=== PATIENT | female | born 1995 | race Hispanic/Latino ===

== ENCOUNTER 2017-06-23 22:19 | Emergency (ER) | payer BC ==
[2017-06-23] MEDS ORDERED: NA CHLORIDE 0.9% 1,000 ML ONE (23:01)
[2017-06-23 23:27] LABS: Protime INR 1.2
[2017-06-23 23:29] LABS: Absolute Lymphocytes (CBC) 2.4 K/uL (0.7-4.9); Absolute Monocytes 0.6 K/uL (0.1-1.3); Absolute Neutrophil 6.2 K/uL (1.8-8.0); Basophils % 0.5 % (0-1.3); Eosinophils % 0.3 % (0-4.4); Lymphocytes % 25.5 % (15.3-44.8); MCV 90.7 fL (80-100); MPV 10.1 fL (7.6-11.3); Monocytes % 6.2 % (3.3-12.3); RBC Red Blood Cell Count 3.97 M/uL (3.86-4.86)
[2017-06-23 23:42] LABS: Glucose Level 107 mg/dL (65-120)
[2017-06-23 23:48] LABS: ALT/SGPT 12 IU/L (10-60); AST/SGOT 21 IU/L (10-42); Albumin 4.9 g/dL (3.2-5.5); Alkaline Phosphatase 52 IU/L (42-121); BUN Blood Urea Nitrogen 9 mg/dL (6-20); Bilirubin Direct 0.1 mg/dL (0-0.2); Bilirubin Total 0.8 mg/dL (0.3-1.2); Protein, Total 7.7 g/dL (6.0-8.3)
[2017-06-23 23:50] LABS: Alcohol Serum/Plasma < 10 mg/dl; Bicarbonate 21 mEq/L (21-31); Salicylates Level < 4.0 mg/dl (<30); Sodium Level 138 mEq/L (135-145)
[2017-06-24] MEDS ORDERED: NA CHLORIDE 0.9% 1,000 ML ONE (00:05)
[2017-06-24] MEDS ORDERED: KCL 20 MEQ/100 mL IVPB 20 MEQ/100 ML BAG IV ONE ×2 (00:05→03:03)
[2017-06-24 00:11] LABS: Specific Gravity 1.015 (1.005-1.030)
[2017-06-24 00:20] LABS: Barbiturates NEGATIVE; Benzodiazepines POSITIVE; Cocaine NEGATIVE; Opiates POSITIVE; Phencyclidine NEGATIVE; THC Cannibis POSITIVE
[2017-06-24 00:27] LABS: METHAMPHETAM POSITIVE
[2017-06-24] MEDS ORDERED: NA CHLORIDE 0.9% 500 ML ONE (03:03)
[2017-06-24 03:30] LABS: Urine Blood TRACE (NEG); Urine Glucose NEGATIVE (NEG); Urine Protein 1+ (NEG); Urine Specific Gravity >1.030 (1.005-1.030); Urine pH 6.5 (5.0-7.0)
[2017-06-24 05:33] LABS: BUN Blood Urea Nitrogen 8 mg/dL (6-20); Bicarbonate 22 mEq/L (21-31); Glucose Level 95 mg/dL (65-120); Potassium 4.1 mEq/L (3.6-5.0); Sodium Level 138 mEq/L (135-145)
--- NOTE | 2017-06-24 06:50 | ER ---
Nurse's Notes [facility] Emergency Department Name: Nay Ayon Age: 21 yrs Sex: Female : 1995 Arrival Date: 06/23/2017 Time: 22:23 Bed 17 Private MD: Diagnosis: Depression;Acute stress reaction Presentation: 06/23 22:30 Presenting complaint: EMS states: Pt having thoughts of suicide, pt reported taking an ea unknown amount of Nexium, Cipro and Ranitidine at around 1300, pt reported she induced vomiting about 15 to 20 minutes after. Pt called suicide hot line and contacted EMS. EMS reports that they contacted poison control and were told to provide comfort measures for abdominal discomfort as needed. Transition of care: patient was not received from another setting of care. Onset of symptoms was June 23, 2017. Initial Sepsis Screen: Does the patient meet any 2 criteria? No. Patient's initial sepsis screen is negative. Does the patient have a suspected source of infection? No. Patient's initial sepsis screen is negative. 22:30 Method Of Arrival: EMS: [facility] ea 22:30 Care prior to arrival: None. ea 22:30 Acuity: ALIA 2 ea Triage Assessment: 22:30 General: Appears in no apparent distress. Behavior is calm, cooperative, Pt denies SI . ea Pain: Complains of pain in abdomen Pain does not radiate. Pain currently is 6 out of 10 on a pain scale. Quality of pain is described as aching, crampy, Pain began 3 hours ago. Is intermittent. EENT: No deficits noted. Neuro: Level of Consciousness is awake, alert, obeys commands, Oriented to person, place, time, situation. Cardiovascular: Heart tones present Patient's skin is warm and dry. Respiratory: Airway is patent Respiratory effort is even, unlabored, Respiratory pattern is regular, symmetrical, Breath sounds are clear bilaterally. GI: Abdomen is non-distended, Bowel sounds present X 4 quads. Abd is soft and non tender X 4 quads. : No signs and/or symptoms were reported regarding the genitourinary system. Derm: Skin is pink, warm \T\ dry. TUR[employer] F[employer]ER: 22:30 LMP 05/26/2017 ea Historical: - Allergies: 22:48 No Known Allergies; ea - Home Meds: 22:48 Bactrim DS 800-160 mg Oral tab 1 tab every 12 hours [Active]; ranitidine HCl 75 mg Oral ea tab 1 tab 2 times per day [Active]; Cipro 500 mg Oral tab [Active]; esomeprazole magnesium 40 mg oral cpDR 1 cap 2 times per day [Active]; - PMHx: 22:48 Heart Murmur; Anxiety; Depression; ea - Immunization history:: Adult Immunizations up to date. - Social history:: Smoking status: Patient/guardian denies using tobacco. Screenin:53 Abuse screen: Denies threats or abuse. Nutritional screening: No deficits noted. ea Tuberculosis screening: No symptoms or risk factors identified. Fall Risk None identified. Assessment: 23:48 Reassessment: Patient and/or family updated on plan of care and expected duration. Pain ea level reassessed. Patient is alert, oriented x 3, equal unlabored respirations, skin warm/dry/pink. Pt reports abdominal pain has subsided. 06/24 00:38 Reassessment: Patient and/or family updated on plan of care and expected duration. Pain ea level reassessed. Patient is alert, oriented x 3, equal unlabored respirations, skin warm/dry/pink. Patient denies pain at this time. 01:55 Reassessment: Patient and/or family updated on plan of care and expected duration. Pain ea level reassessed. Pt resting with eyes closed, respirations even and unlabored, chest expansions even and symmetrical. No s/s of pain or discomfort noted at this time. Mother at bedside. 02:25 Reassessment: Patient and/or family updated on plan of care and expected duration. Pain ea level reassessed. Pt resting with eyes closed, respirations even and unlabored, chest expansions even and symmetrical. No s/s of pain or discomfort noted at this time. Mother at bedside. 03:19 Reassessment: Patient and/or family updated on plan of care and expected duration. Pain ea level reassessed. Patient is alert, oriented x 3, equal unlabored respirations, skin warm/dry/pink. Pt denies suicidal ideations. Mother at bedside. 04:51 Reassessment: Patient and/or family updated on plan of care and expected duration. Pain ea level reassessed. Patient is alert, oriented x 3, equal unlabored respirations, skin warm/dry/pink. Patient denies pain at this time. Patient states feeling better. 05:56 Reassessment: Patient and/or family updated on plan of care and expected duration. Pain ea level reassessed. Patient is alert, oriented x 3, equal unlabored respirations, skin warm/dry/pink. Pt denies suicidal ideations. Mother remains at bedside. Patient denies pain at this time. Patient states feeling better. 06:15 Reassessment: Patient and/or family updated on plan of care and expected duration. Pain ea level reassessed. Patient is alert, oriented x 3, equal unlabored respirations, skin warm/dry/pink. [place] ETA approx. 20 to 30 min. Mother remains at bedside. Patient denies pain at this time. Patient states feeling better. 06:50 Reassessment: Patient and/or family updated on plan of care and expected duration. Pain ea level reassessed. Patient is alert, oriented x 3, equal unlabored respirations, skin warm/dry/pink. Discharge instructions given to patient and family, verbalized the understanding of instructions. Patient denies pain at this time. Patient states feeling better. Vital Signs: 06/23 22:30 BP 138 / 69; Pulse 119; Resp 18; Temp 98.8; Pulse Ox 100% on R/A; Weight 63.5 kg; ea Height 5 ft. 5 in. (165.10 cm); Pain 6/10; 06/24 00:45 BP 110 / 66; Pulse 75; Resp 18; Pulse Ox 98% on R/A; ea 02:26 BP 108 / 63; Pulse 71; Resp 18; Pulse Ox 98% on R/A; ea 03:22 BP 100 / 64; Pulse 70; Resp 18 S; Pulse Ox 100% on R/A; ea 04:51 BP 103 / 63; Pulse 68; Resp 18; Pulse Ox 99% on R/A; Pain 0/10; ea 05:27 BP 100 / 60; Pulse 70; Resp 18 S; Pulse Ox 99% on R/A; ea 06:27 BP 100 / 64; Pulse 68; Resp 18 S; Temp 97.8(TE); Pulse Ox 99% on R/A; ea 06/23 22:30 Body Mass Index 23.30 (63.50 kg, 165.10 cm) ea ED Course: 06/23 22:23 Patient arrived in ED. rg2 22:29 Marika Fuller FNP-C is [facility]. snw 22:29 Diogo Andrews MD is Attending Physician. snw 22:30 Safety Checks: Personal items have been removed The door is open or patient has been ea placed in a hallway bed/chair. A family member and/or friend is present and encouraged to stay. 22:32 Tereza Wan, CARLOS is Primary Nurse. ea 22:45 Triage completed. ea 22:54 Patient has correct armband on for positive identification. Bed in low position. Call ea light in reach. Side rails up X2. 23:00 Safety Checks: Personal items have been removed The door is open or patient has been ea placed in a hallway bed/chair. A family member and/or friend is present and encouraged to stay. 23:00 Inserted saline lock: 20 gauge in right antecubital area, using aseptic technique. ea Blood collected. 23:15 Safety Checks: Personal items have been removed The door is open or patient has been ea placed in a hallway bed/chair. A family member and/or friend is present and encouraged to stay. 23:25 Radiology exam delayed due to test not completed at this time. kw 23:30 Safety Checks: Personal items have been removed The door is open or patient has been ea placed in a hallway bed/chair. A family member and/or friend is present and encouraged to stay. 23:30 Arm band placed on right wrist. ea 23:45 Safety Checks: Personal items have been removed The door is open or patient has been ea placed in a hallway bed/chair. A family member and/or friend is present and encouraged to stay. 06/24 00:00 Safety Checks: Personal items have been removed The door is open or patient has been ea placed in a hallway bed/chair. A family member and/or friend is present and encouraged to stay. 00:15 Safety Checks: Personal items have been removed The door is open or patient has been ea placed in a hallway bed/chair. A family member and/or friend is present and encouraged to stay. 00:26 Patient moved to radiology via wheelchair. kw 00:26 X-ray completed. Patient tolerated procedure well. kw 00:26 Patient moved back from radiology. kw 00:27 XRAY Abdomen Acute Series In Process Unspecified. EDMS 00:30 Safety Checks: Personal items have been removed The door is open or patient has been ea placed in a hallway bed/chair. A family member and/or friend is present and encouraged to stay. 01:00 Safety Checks: Personal items have been removed The door is open or patient has been ea placed in a hallway bed/chair. A family member and/or friend is present and encouraged to stay. 01:15 Safety Checks: Personal items have been removed The door is open or patient has been ea placed in a hallway bed/chair. A family member and/or friend is present and encouraged to stay. 01:30 Safety Checks: Personal items have been removed The door is open or patient has been ea placed in a hallway bed/chair. A family member and/or friend is present and encouraged to stay. 01:45 Safety Checks: Personal items have been removed The door is open or patient has been ea placed in a hallway bed/chair. A family member and/or friend is present and encouraged to stay. 02:00 Safety Checks: Personal items have been removed The door is open or patient has been ea placed in a hallway bed/chair. A family member and/or friend is present and encouraged to stay. 02:15 Safety Checks: Personal items have been removed The door is open or patient has been ea placed in a hallway bed/chair. A family member and/or friend is present and encouraged to stay. 02:30 Safety Checks: Personal items have been removed The door is open or patient has been ea placed in a hallway bed/chair. A family member and/or friend is present and encouraged to stay. 03:00 Safety Checks: Personal items have been removed The door is open or patient has been ea placed in a hallway bed/chair. A family member and/or friend is present and encouraged to stay. 03:15 Safety Checks: Personal items have been removed The door is open or patient has been ea placed in a hallway bed/chair. A family member and/or friend is present and encouraged to stay. 03:30 Safety Checks: Personal items have been removed The door is open or patient has been ea placed in a hallway bed/chair. A family member and/or friend is present and encouraged to stay. 03:45 Safety Checks: Personal items have been removed The door is open or patient has been ea placed in a hallway bed/chair. A family member and/or friend is present and encouraged to stay. 04:00 Safety Checks: Personal items have been removed The door is open or patient has been ea placed in a hallway bed/chair. A family member and/or friend is present and encouraged to stay. 04:15 Safety Checks: Personal items have been removed The door is open or patient has been ea placed in a hallway bed/chair. A family member and/or friend is present and encouraged to stay. 04:30 Safety Checks: Personal items have been removed The door is open or patient has been ea placed in a hallway bed/chair. A family member and/or friend is present and encouraged to stay. 04:45 Safety Checks: Personal items have been removed The door is open or patient has been ea placed in a hallway bed/chair. A family member and/or friend is present and encouraged to stay. 05:00 Safety Checks: Personal items have been removed The door is open or patient has been ea placed in a hallway bed/chair. A family member and/or friend is present and encouraged to stay. 05:15 Safety Checks: Personal items have been removed The door is open or patient has been ea placed in a hallway bed/chair. A family member and/or friend is present and encouraged to stay. 05:28 Safety Checks: Personal items have been removed The door is open or patient has been ea placed in a hallway bed/chair. A family member and/or friend is present and encouraged to stay. 05:30 Safety Checks: Personal items have been removed The door is open or patient has been ea placed in a hallway bed/chair. A family member and/or friend is present and encouraged to stay. 05:45 Safety Checks: Personal items have been removed The door is open or patient has been ea placed in a hallway bed/chair. A family member and/or friend is present and encouraged to stay. 06:00 Safety Checks: Personal items have been removed The door is open or patient has been ea placed in a hallway bed/chair. A family member and/or friend is present and encouraged to stay. 06:15 Safety Checks: Personal items have been removed The door is open or patient has been ea placed in a hallway bed/chair. A family member and/or friend is present and encouraged to stay. 06:30 Safety Checks: Personal items have been removed The door is open or patient has been ea placed in a hallway bed/chair. A family member and/or friend is present and encouraged to stay. 06:50 No provider procedures requiring assistance completed. IV discontinued, intact, ea bleeding controlled, No redness/swelling at site. Pressure dressing applied. Administered Medications: 06/23 23:05 Drug: NS 0.9% 1000 ml Route: IV; Rate: 1 bolus; Site: right antecubital; ea 06/24 00:30 Follow up: Response: No adverse reaction; IV Status: Completed infusion ea 00:13 Drug: Potassium Chloride 20 mEq Route: IV; Rate: calculated rate; Site: right ea antecubital; 01:50 Follow up: IV Status: Completed infusion ak1 00:14 Drug: NS 0.9% 1000 ml Route: IV; Rate: 125 ml/hr; Site: right antecubital; ea 01:00 Follow up: Response: No adverse reaction; IV Status: Completed infusion ea 03:10 Drug: Potassium Chloride 20 mEq Route: IV; Rate: calculated rate; Site: right ea antecubital; 04:49 Follow up: Response: No adverse reaction; IV Status: Completed infusion ea Outcome: 06:49 Discharge ordered by . rn 06:50 Discharged to home ambulatory, with family. ea 06:50 Condition: improved 06:50 Discharge instructions given to patient, family, Instructed on discharge instructions, follow up and referral plans. Demonstrated understanding of instructions, follow-up care. 07:11 Patient left the ED. ea Signatures: Dispatcher [employer] EDMS Marge Guzman rg2 Marika Fuller, MANAGEMENT SPECIALIST-C MANAGEMENT SPECIALIST-Csnw Diogo Andrews MD MD rn Whitley, Kimberlee kw Krenek, Amber RN RN Tereza Reid RN RN khanh Corrections: (The following items were deleted from the chart) 06/23 22:53 21:55 General: Appears in no apparent distress. Behavior is calm, cooperative, ea ea :57 06/22 21:55 Presenting complaint: EMS states: Pt having thoughts of suicide, pt ea reported taking an unknown amount of Nexium, Cipro and Ranitidine at around 1300, pt reported she induced vomiting about 15 to 20 minutes after. Pt called suicide hot line and contacted EMS. EMS reports that they contacted poison control and were told to provide comfort measures for abdominal discomfort as needed. ea 06/23 21:55 Transition of care: patient was not received from another setting of care. [facility] 06/23 21:06/22 21:55 Onset of symptoms was June 23, 2017 [facility] 06/23 21:06/22 21:55 Initial Sepsis Screen: Does the patient meet any 2 criteria? No. Patient's ea initial sepsis screen is negative. Does the patient have a suspected source of infection? No. Patient's initial sepsis screen is negative. 06/23 21:06/22 21:55 Care prior to arrival: None. [facility] 06/23 21:06/22 21:55 Method Of Arrival: EMS: [facility] 06/23 21:06/22 21:55 Acuity: ALIA 2 [facility] 06/23 21: 21:55 BP 138 / 69; Pulse 119bpm; Resp 18bpm; Pulse Ox 100% RA; Temp 98.8F; 63.5 kg; ea Height 5 ft. 5 in.; BMI: 23.3; Pain 6/10; 21:55 LMP 05/26/2017 [facility] : 21:55 Pain: Complains of pain in abdomen Pain does not radiate. Pain currently is 6 out ea of 10 on a pain scale. Quality of pain is described as aching, crampy, Pain began 3 hours ago. Is intermittent, ea 21:55 EENT: No deficits noted. [facility] : 21:55 Neuro: Level of Consciousness is awake, alert, obeys commands, Oriented to ea person, place, time, situation, 21:55 Cardiovascular: Heart tones present Patient's skin is warm and dry. ea : 21:55 Respiratory: Airway is patent Respiratory effort is even, unlabored, Respiratory ea pattern is regular, symmetrical, Breath sounds are clear bilaterally. ea 21:55 GI: Abdomen is non-distended, Bowel sounds present X 4 quads. Abd is soft and non ea tender X 4 quads. ea 21:55 : No signs and/or symptoms were reported regarding the genitourinary system. ea :58 21:55 Derm: Skin is pink, warm \T\ dry. ea :58 21:55 General: Appears in no apparent distress. Behavior is calm, cooperative, Pt ea denies SI . ea 06/24 02:26 02:25 Reassessment: Patient and/or family updated on plan of care and expected ea duration. Pain level reassessed. Patient is alert, oriented x 3, equal unlabored respirations, skin warm/dry/pink. ea : 03:20 BP 130 / 58; Pulse 68bpm; Resp 18bpm; Spontaneous; Pulse Ox 98% RA; ea ea 05:57 03:19 Reassessment: Patient and/or family updated on plan of care and expected ea duration. Pain level reassessed. Patient is alert, oriented x 3, equal unlabored respirations, skin warm/dry/pink. ea 05:57 03:19 Reassessment: Patient and/or family updated on plan of care and expected ea duration. Pain level reassessed. Patient is alert, oriented x 3, equal unlabored respirations, skin warm/dry/pink. Pt denies suicidal ideations. ea 05:57 05:56 Reassessment: Patient and/or family updated on plan of care and expected ea duration. Pain level reassessed. Patient is alert, oriented x 3, equal unlabored respirations, skin warm/dry/pink. Patient denies pain at this time. Patient states feeling better. ea 05:57 05:56 Reassessment: Patient and/or family updated on plan of care and expected ea duration. Pain level reassessed. Patient is alert, oriented x 3, equal unlabored respirations, skin warm/dry/pink. Pt denies suicidal ideations. Patient denies pain at this time. Patient states feeling better. ea
--- NOTE | 2017-06-24 06:50 | EDPHYS ---
Physician Documentation [facility] Name: Nay Ayon Age: 21 yrs Sex: Female : 1995 Arrival Date: 06/23/2017 Time: 22:23 Bed 17 Private MD: ED Physician Diogo Andrews HPI: 06/24 01:11 This 21 yrs old Female presents to ER via EMS with complaints of overdose. snw 01:11 The patient presents to the emergency department with anxiety, depression, over money, snw over school, over work, a history of substance abuse, a history of a suicide gesture, where the patient took pills/medications, suicide ideation, and the patient has a plan, to overdose with medications, immediately remorseful per report, started making herself vomit soon after ingestion. Onset: The symptoms/episode began/occurred gradually. Past psychiatric history: Prior diagnosis: depression, the patient has not had a prior suicide gesture, the patient does not have a previous inpatient psychiatric history, the patient's last psychiatric treatment was none. Associated signs and symptoms: Pertinent positives; abdominal pain, anxiety, nausea, vomiting. Severity of symptoms: At their worst the symptoms were moderate severe in the emergency department the symptoms pt remorseful, denies SI. The patient has not experienced similar symptoms in the past. per GI is scheduled for endoscopy on Saturday or this week. 02:51 upon review of previous ED visits pt was transferred to [facility] psych with OD at age 16. snw Has been to this ED in the interim with OD and then declined transfer and Mom took pt with safety contract. At that time pt admitted to [facility]. Today on initial exam pt denied taking anything but GI medications given to her for abd pain but her UDS is + for a constellation of illegal drugs. Pt is hypokalemic and a second runner of KCL is being administered. [facility] has been called for pt eval.. POTLINE MONITOR: 06/23 22:30 LMP 05/26/2017 ea Historical: - Allergies: 22:48 No Known Allergies; ea - Home Meds: 22:48 Bactrim DS 800-160 mg Oral tab 1 tab every 12 hours [Active]; ranitidine HCl 75 mg Oral ea tab 1 tab 2 times per day [Active]; Cipro 500 mg Oral tab [Active]; esomeprazole magnesium 40 mg oral cpDR 1 cap 2 times per day [Active]; - PMHx: 22:48 Heart Murmur; Anxiety; Depression; ea - Immunization history:: Adult Immunizations up to date. - Social history:: Smoking status: Patient/guardian denies using tobacco. ROS: 06/24 01:19 Eyes: Negative for injury, pain, redness, and discharge, ENT: Negative for injury, snw pain, and discharge, Neck: Negative for injury, pain, and swelling, Cardiovascular: Negative for chest pain, palpitations, and edema, Respiratory: Negative for shortness of breath, cough, wheezing, and pleuritic chest pain, Back: Negative for injury and pain, : Negative for injury, bleeding, discharge, and swelling, MS/Extremity: Negative for injury and deformity, Skin: Negative for injury, rash, and discoloration, Neuro: Negative for headache, weakness, numbness, tingling, and seizure. Constitutional: Positive for malaise, poor PO intake. Abdomen/GI: Positive for abdominal pain, nausea, vomiting. Psych: Positive for anxiety, depression, suicide gesture. Exam: 01:19 Constitutional: This is a well developed, well nourished patient who is awake, alert, snw and in no acute distress. Head/Face: Normocephalic, atraumatic. Eyes: Pupils equal round and reactive to light, extra-ocular motions intact. Lids and lashes normal. Conjunctiva and sclera are non-icteric and not injected. Cornea within normal limits. Periorbital areas with no swelling, redness, or edema. ENT: Nares patent. No nasal discharge, no septal abnormalities noted. Tympanic membranes are normal and external auditory canals are clear. Oropharynx with no redness, swelling, or masses, exudates, or evidence of obstruction, uvula midline. Mucous membranes moist. Neck: Trachea midline, no thyromegaly or masses palpated, and no cervical lymphadenopathy. Supple, full range of motion without nuchal rigidity, or vertebral point tenderness. No Meningismus. Chest/axilla: Normal chest wall appearance and motion. Nontender with no deformity. No lesions are appreciated. 01:19 Respiratory: Lungs have equal breath sounds bilaterally, clear to auscultation and percussion. No rales, rhonchi or wheezes noted. No increased work of breathing, no retractions or nasal flaring. Back: No spinal tenderness. No costovertebral tenderness. Full range of motion. Skin: Warm, dry with normal turgor. Normal color with no rashes, no lesions, and no evidence of cellulitis. MS/ Extremity: Pulses equal, no cyanosis. Neurovascular intact. Full, normal range of motion. Neuro: Awake and alert, GCS 15, oriented to person, place, time, and situation. Cranial nerves II-XII grossly intact. Motor strength 5/5 in all extremities. Sensory grossly intact. Cerebellar exam normal. Normal gait. :19 Cardiovascular: Rate: tachycardic, Heart sounds: normal. 01:19 Abdomen/GI: Inspection: abdomen appears normal, Bowel sounds: active, Palpation: moderate abdominal tenderness, in all quadrants. :19 Psych: Behavior/mood is pleasant, cooperative, anxious, remorseful. Affect is tearful. Oriented to person, place, time, Patient has no thoughts/intents to harm self or others. Judgement / Insight is impaired. Vital Signs: 06/23 22:30 BP 138 / 69; Pulse 119; Resp 18; Temp 98.8; Pulse Ox 100% on R/A; Weight 63.5 kg; ea Height 5 ft. 5 in. (165.10 cm); Pain 6/10; 06/24 00:45 BP 110 / 66; Pulse 75; Resp 18; Pulse Ox 98% on R/A; ea 02:26 BP 108 / 63; Pulse 71; Resp 18; Pulse Ox 98% on R/A; ea 03:22 BP 100 / 64; Pulse 70; Resp 18 S; Pulse Ox 100% on R/A; ea 04:51 BP 103 / 63; Pulse 68; Resp 18; Pulse Ox 99% on R/A; Pain 0/10; ea 05:27 BP 100 / 60; Pulse 70; Resp 18 S; Pulse Ox 99% on R/A; ea 06:27 BP 100 / 64; Pulse 68; Resp 18 S; Temp 97.8(TE); Pulse Ox 99% on R/A; ea 06/23 22:30 Body Mass Index 23.30 (63.50 kg, 165.10 cm) ea MDM: 06/23 22:29 Patient medically screened. snw 06/24 02:55 Data reviewed: vital signs, nurses notes. Data interpreted: Pulse oximetry: on room air snw is 98 %. Interpretation: normal. Counseling: I had a detailed discussion with the patient and/or guardian regarding: the historical points, exam findings, and any diagnostic results supporting the discharge/admit diagnosis. Transition of care: After a detail discussion of the patient's case, care is transferred to Diogo Andrews MD. 06:48 Special discussion: I discussed with the patient/guardian in detail that at this point rn there is no indication for admission to the hospital. It is understood, however, that if the symptoms persist or worsen the patient needs to return immediately for re-evaluation. ED course: Patient doing well, evaluated by [facility], they state ok to discharge, will have f/u with counselor that they have used in past, parents feel safe taking her home and ensuring her safety, return precautions given and understood.. 06/23 22:42 Order name: Acetaminophen; Complete Time: 23:58 snw 06/23 22:42 Order name: BMP; Complete Time: 23:58 snw 06/23 22:42 Order name: CBC with Diff; Complete Time: 23:33 snw 06/23 22:42 Order name: Ethanol; Complete Time: 23:58 snw 06/23 22:42 Order name: Hepatic Function; Complete Time: 23:58 snw 06/23 22:42 Order name: Protime (+inr); Complete Time: 23:39 snw 06/23 22:42 Order name: XRAY Abdomen Acute Series w 06/23 22:42 Order name: Ptt, Activated; Complete Time: 23:39 snw 06/23 22:42 Order name: Salicylate; Complete Time: 23:58 snw 06/23 22:42 Order name: Urine Drug Screen; Complete Time: 00:29 snw 06/24 00:06 Order name: Urine Dipstick--Ancillary (enter results); Complete Time: 05:43 rg2 06/24 00:10 Order name: Test, Urine; Complete Time: 00:24 EDMS 06/24 02:54 Order name: Chem 7: at 0430; Complete Time: 05:43 snw 06/23 22:42 Order name: Urine Test (obtain specimen); Complete Time: 00:00 snw 06/23 22:42 Order name: EKG; Complete Time: 22:43 snw 06/23 22:42 Order name: EKG - Nurse/Tech; Complete Time: 23:29 snw 06/23 22:42 Order name: IV Saline Lock; Complete Time: 00:30 snw 06/23 22:42 Order name: Labs collected and sent; Complete Time: 00:30 snw 06/23 22:42 Order name: O2 Per Protocol; Complete Time: 00:30 snw 06/23 22:42 Order name: O2 Sat Monitoring; Complete Time: 00:30 snw 06/23 22:42 Order name: Urine Dipstick-Ancillary (obtain specimen); Complete Time: 00:00 snw Administered Medications: 06/23 23:05 Drug: NS 0.9% 1000 ml Route: IV; Rate: 1 bolus; Site: right antecubital; ea 06/24 00:30 Follow up: Response: No adverse reaction; IV Status: Completed infusion ea 00:13 Drug: Potassium Chloride 20 mEq Route: IV; Rate: calculated rate; Site: right ea antecubital; 01:50 Follow up: IV Status: Completed infusion ak1 00:14 Drug: NS 0.9% 1000 ml Route: IV; Rate: 125 ml/hr; Site: right antecubital; ea 01:00 Follow up: Response: No adverse reaction; IV Status: Completed infusion ea 03:10 Drug: Potassium Chloride 20 mEq Route: IV; Rate: calculated rate; Site: right ea antecubital; 04:49 Follow up: Response: No adverse reaction; IV Status: Completed infusion ea Disposition: 06/24/17 06:49 Discharged to Home. Impression: Depression, Acute stress reaction. - Condition is Stable. - Discharge Instructions: Depression, Adult, Helping Someone Who is Suicidal. - Medication Reconciliation Form, Thank You Letter, Antibiotic Education, Prescription Opioid Use form. - Follow up: Private Physician; When: As needed; Reason: Recheck today's complaints, Re-evaluation by your physician. - Problem is new. - Symptoms have improved. Addendum: 06/29/2017 07:09 Co-signature as Attending Physician, Diogo Andrews MD. r n Signatures: Dispatcher [employer] EDLA Marika Fuller, TITLE ATTORNEY-C TITLE ATTORNEY-Csnw Diogo Andrews MD MD rn Antunez, Elena, RN RN ea Krenek, Karla RN ak1 Corrections: (The following items were deleted from the chart) 06/24 07:11 06:49 06/24/2017 06:49 Discharged to Home. Impression: Depression; Acute stress ea reaction. Condition is Stable. Forms are Medication Reconciliation Form, Thank You Letter, Antibiotic Education, Prescription Opioid Use. Follow up: Private Physician; When: As needed; Reason: Recheck today's complaints, Re-evaluation by your physician. Problem is new. Symptoms have improved. rn
--- NOTE | 2017-06-24 07:15 | EKG ---
Test Date: 2017-06-23 Test Time: 23:19:58 [facility] [employer] Department Supervisor: KEKE MEASUREMENT RESULTS: Intervals: Rate: 107 TN: 160 QRSD: 100 QT: 362 QTc: 483 Morris: P: 79 TN: 160 QRS: 68 T: 51 INTERPRETIVE STATEMENTS: Sinus tachycardia Incomplete right bundle branch block Borderline ECG Compared to ECG 05/22/2015 12:21:52 Incomplete right bundle-branch block now present Electronically Signed On 06-24-17 07:14:53 CDT by Andre Cummings
--- NOTE | 2017-06-24 08:35 | RAD REPORT ---
EXAM DESCRIPTION: RAD - Abdomen Acute Series - 06/24/2017 12:33 am CLINICAL HISTORY: Chest pain, abdominal pain COMPARISON: None. FINDINGS: Lungs are clear. Heart size and pulmonary vasculature are normal. No pleural effusion, pne umothorax or other acute cardiopulmonary process seen. Bowel gas pattern is nonspecific. Multiple air filled but nondilated small bowel loops are present. N o bowel obstruction, free air or other acute findings. No suspicious calcifications. No other suspicious for significant findings. IMPRESSION: Chest abdomen and pelvis imaging shows no acute or suspicious finding.
== END 2017-06-24 07:11 | disposition home or self-care (01) ==
LOC: ER 22:19
DX: F43.0 Acute stress reaction (principal); F41.9 Anxiety disorder, unspecified; F32.9 Major depressive disorder, single episode, unspecified
CPT/HCPCS: 36415; 74022; 80048; 80076; 80307; 80320; 80329; 81003; 81025; 85025; 85610; 85730; 93005; 96361; 96365; 96366; 99284; J7030